=== PATIENT | female | born 1995 | race Caucasian/White ===

== ENCOUNTER 2022-08-30 15:50 | Emergency (ER) | payer BC ==
[2022-08-30 16:32] LABS: Bilirubin Neg (Negative); Blood, Urine 250 (Negative); Glucose, Urine (Dipstick) Normal (Negative); Ketone, Urine Negative (Negative); Leukocyte 500 (Negative); Nitrite Negative (Negative); Protein, Urine (Dipstick) 15 mg/dl (Neg-Trace); Urobilinogen Normal mg/dL (Less than 2)
[2022-08-30 16:34] LABS: Clarity Cloudy (Clear)
[2022-08-30 16:35] LABS: Bacteria/HPF Rare-Few HPF (None Seen); RBC/HPF Greater than 50 HPF (0-3)
[2022-08-30 16:51] LABS: #Basophils 0.1 10x3/uL (0.0-0.2); #Monocytes 0.5 10x3/uL (0.0-1.1); %Basophils 0.5 % (0.0-2.0); %Eosinophils 0.4 % (0.0-6.0); %Lymphocytes 11.3 % (18.0-47.0); %Monocytes 4.8 % (0.0-10.0); %Neutrophils 82.7 % (40.0-75.0); Mean Corpuscular HGB CONC 34.7 g/dL (32.0-36.0); Mean Corpuscular Hemoglobin 31.7 pg (27.0-33.0); Mean Corpuscular Volume 91.5 fl (81.6-98.3); Mean Platelet Volume 9.9 fl (7.4-10.4); Platelet Count 276 10x3/uL (150-450); RBC Distribution Width 11.8 % (11.5-14.5); Red Blood Cell (RBC) Count 3.78 10x6/uL (3.90-5.03); White Blood Cell (WBC) Count 10.9 10x3/uL (3.5-10.5)
[2022-08-30 17:06] LABS: ALT (SGPT) 17 U/L (8-55); AST (SGOT) 18 U/L (5-34); Albumin 4.5 g/dL (3.5-5.0); Alkaline Phosphatase 54 U/L (40-110); Anion Gap 16 mmol/L (10-20); BUN (Urea Nitrogen) 7 mg/dL (7.0-18.7); Bilirubin, Total 0.3 mg/dL (0.2-1.2); Calc. Creatinine Clearance 0 mL/min (70-130); Calcium 9.3 mg/dL (7.8-10.44); Carbon Dioxide 23 mmol/L (22-29); Chloride 106 mmol/L (98-107); Estimated GFR 124; Globulin 3.3 g/dL (2.4-3.5); Glucose 100 mg/dL (70-105); Potassium 4.5 mmol/L (3.5-5.1); Protein, Total 7.8 g/dL (6.0-8.3); Sodium 140 mmol/L (136-145)
== END 2022-08-30 18:50 | disposition home or self-care (01) ==
LOC: CSHERS 15:50
DX: O20.0 Threatened abortion (principal); Z3A.01 Less than 8 weeks gestation of pregnancy
CPT/HCPCS: 80053; 81003; 81015; 84702; 85025; 86900; 86901

== ENCOUNTER 2025-06-05 14:19 | Emergency (ER) | payer BC ==
[2025-06-05 15:45] LABS: #Basophils 0.05 10x3/uL (0.0-0.2); #Eosinophils 0.10 10x3/uL (0.0-0.5); #Monocytes 0.57 10x3/uL (0.0-1.1); #Neutrophils 6.98 10x3/uL (1.5-8.4); %Basophils 0.6 % (0.0-2.0); %Eosinophils 1.1 % (0.0-6.0); %Lymphocytes 12.5 % (18.0-47.0); %Monocytes 6.5 % (0.0-10.0); %Neutrophils 79.1 % (40.0-75.0); Hematocrit 36.1 % (34.9-44.5); Hemoglobin 12.5 g/dL (12.0-15.5); Mean Corpuscular Hemoglobin 31.3 pg (27.0-33.0); Mean Corpuscular Volume 90.3 fL (81.6-98.3); Platelet Count 316 10x3/uL (150-450); Red Blood Cell (RBC) Count 4.00 10x6/uL (3.90-5.03); White Blood Cell (WBC) Count 8.82 10x3/uL (3.5-10.5)
[2025-06-05 16:02] LABS: ALT (SGPT) 22 U/L (Less than 34); AST (SGOT) 25 U/L (11-34); Albumin 4.5 g/dL (3.1-4.5); Alkaline Phosphatase 74 U/L (40-110); Anion Gap 13 mmol/L (10-20); BUN (Urea Nitrogen) 7 mg/dL (7.0-18.7); Bilirubin, Total 0.2 mg/dL (0.3-1.2); Calc. Creatinine Clearance 0 mL/min (70-130); Calcium 9.7 mg/dL (7.8-10.44); Carbon Dioxide 25 mmol/L (22-29); Chloride 105 mmol/L (98-107); Globulin 3.4 g/dL (2.4-3.5); Glucose 89 mg/dL (70-105); Potassium 3.5 mmol/L (3.5-5.1); Sodium 139 mmol/L (136-145)
[2025-06-05 17:03] LABS: Glucose, Urine (Dipstick) Normal (Negative); Leukocyte 25 (Negative); Protein, Urine (Dipstick) Negative (Neg-Trace); Specific Gravity, Urine 1.010 (1.005-1.030)
[2025-06-05 17:19] LABS: CAUTI Indications for Culture Pelvic or flank pain; RBC/HPF 0-3 HPF (0-3); WBC/HPF 0-3 HPF (0-3)
[2025-06-05 17:20] LABS: Bacteria/HPF None Seen HPF (None Seen); Urine Culture Reflex No No
== END 2025-06-05 16:58 | disposition home or self-care (01) ==
LOC: CSHERS 14:19
DX: O20.0 Threatened abortion (principal); Z3A.01 Less than 8 weeks gestation of pregnancy
CPT/HCPCS: 76856; 80053; 81001; 84702; 85025

== ENCOUNTER 2025-06-05 19:28 | Emergency (ER) | payer BC ==
[2025-06-05] MEDS ORDERED: Ondansetron PF 4 MG/2 ML Vial ONE (20:24)
[2025-06-05 20:25] LABS: #Basophils 0.04 10x3/uL (0.0-0.2); #Eosinophils 0.08 10x3/uL (0.0-0.5); #Monocytes 0.71 10x3/uL (0.0-1.1); #Neutrophils 8.16 10x3/uL (1.5-8.4); %Basophils 0.4 % (0.0-2.0); %Eosinophils 0.7 % (0.0-6.0); %Lymphocytes 17.2 % (18.0-47.0); %Monocytes 6.5 % (0.0-10.0); %Neutrophils 74.9 % (40.0-75.0); Hematocrit 33.5 % (34.9-44.5); Hemoglobin 11.5 g/dL (12.0-15.5); Mean Corpuscular Hemoglobin 30.9 pg (27.0-33.0); Mean Corpuscular Volume 90.1 fL (81.6-98.3); Platelet Count 300 10x3/uL (150-450); Red Blood Cell (RBC) Count 3.72 10x6/uL (3.90-5.03); White Blood Cell (WBC) Count 10.90 10x3/uL (3.5-10.5)
[2025-06-05 20:39] LABS: INR-International Normal Ratio 1.0; PTT 26.2 sec (22.0-33.0); Prothrombin Time 10.9 sec (9.5-12.1)
[2025-06-05 20:41] LABS: ALT (SGPT) 21 U/L (Less than 34); AST (SGOT) 27 U/L (11-34); Albumin 4.0 g/dL (3.1-4.5); Alkaline Phosphatase 69 U/L (40-110); Anion Gap 13 mmol/L (10-20); BUN (Urea Nitrogen) 6 mg/dL (7.0-18.7); Bilirubin, Total 0.1 mg/dL (0.3-1.2); Calc. Creatinine Clearance 0 mL/min (70-130); Calcium 9.1 mg/dL (7.8-10.44); Carbon Dioxide 20 mmol/L (22-29); Chloride 110 mmol/L (98-107); Globulin 3.1 g/dL (2.4-3.5); Glucose 131 mg/dL (70-105); Potassium 3.0 mmol/L (3.5-5.1); Sodium 140 mmol/L (136-145)
[2025-06-05 20:42] LABS: BHCG - Serum POSITIVE (NEGATIVE); Pregs Control Background? CLEAR/WHITE (CLR/WHITE); Pregs Control Bar Appear? YES (CONTROL BAR)
== END 2025-06-05 22:49 | disposition home or self-care (01) ==
LOC: CSHERS 19:28
DX: O03.9 Complete or unspecified spontaneous abortion without complication (principal); O03.83 Metabolic disorder following complete or unspecified spontaneous abortion; E87.6 Hypokalemia; O03.6 Delayed or excessive hemorrhage following complete or unspecified spontaneous abortion; D68.61 Antiphospholipid syndrome; N93.9 Abnormal uterine and vaginal bleeding, unspecified; Z3A.01 Less than 8 weeks gestation of pregnancy
CPT/HCPCS: 76856; 80053; 81001; 84702; 84703; 85025; 85610; 85730; 86850; 86900; 86901; 96374; 96375